=== PATIENT | female | born 2000 | race Caucasian/White ===

== ENCOUNTER 2023-07-09 14:48 | Outpatient (CLI) | payer OTHER, SELFPAY | END 2023-07-09 14:49 | disposition home or self-care (01) | LOC: AMB 07-16 16:06 | PROVIDERS: Visit Provider Emergency Medicine | DX: S79.911A Unspecified injury of right hip, initial encounter (principal); V80.010A Animal-rider injured by fall from or being thrown from horse in noncollision accident, initial encounter; Y93.52 Activity, horseback riding; Y92.39 Other specified sports and athletic area as the place of occurrence of the external cause | CPT/HCPCS: A0425; A0427 ==

== ENCOUNTER 2023-07-09 15:28 | Emergency (ER) | payer OTHER, SELFPAY ==
[2023-07-09] VITALS (18 sets, daily range): BP systolic 113–132; BP diastolic 66–89; PULSE 71–92; RESP 18; TEMP 36.8; O2SAT 94–100; BMI 24.2
--- NOTE | 2023-07-09 16:08 | ED_ITS ---
HPI - Fall General Time Seen by Provider: 16:08 Date Seen: 07/09/23 Chief Complaint: Fall/Minor Trauma Stated Complaint: Fell off horse Time Seen by Provider: 07/09/23 16:06 Source: patient and RN notes reviewed Mode of arrival: ambulatory Limitations: no limitations History of Present Illness HPI Narrative: This patient is a 22yo female accompanied by her mom into the ED after being bucked off her horse. She was riding dressage in the indoor arena when her horse spooked, taking off and bucking her off. She landed on her left side, initially had the wind knocked out of her, no loss of consciousness. She has no head pain, no headache, no facial pain, feels like her teeth are occluding normal. Initially with the wind being knocked out of her, felt short of breath but does not feel short of breath now. She feels a little lower left chest wall pain with breathing. No abdominal pain but feels pain over the left hip and the low back area. Pain originally did go down into her legs. No numbness tingling, no weakness noted. She did ambulate into the ED of her own accord, was ambulating independently after this but with some pain primarily on her left side. Her horse is about 17 2 hands. She denies any neck pain, no upper back pain. She was wearing a helmet, her head probably did make contact with the ground but it was not the 1st thing to hit. She is on oral contraceptives, has not missed any doses, does not believe there is chance of . I did have staff call TTA based on the mechanism reported. complaint: fall Loss of consciousness: No Related Data Home Medications Medication Instructions Recorded Confirmed hyoscyamine sulfate PO 07/09/23 omeprazole .ROUTE 07/09/23 Allergies Allergy/AdvReac Type Severity Reaction Status Date / Time No Known Drug Allergies Allergy Verified 07/09/23 15:44 Review of Systems Status of ROS: Reports: 6 or more systems reviewed and unremarkable except as noted in History and below [facility] Social History Smoking Status: Never smoker Do you use any of these nicotine containing products: None Second hand tobacco smoke exposure: No How often do you have a drink containing alcohol: 2-4 times a month AUDIT-C Alcohol total score: 2 Non-prescribed substance use: marijuana (any form) Exam Const: Vital Signs, click to edit/add: Vital Signs - 24 hr 07/09/23 15:36 07/09/23 16:11 07/09/23 16:12 Temperature 98.3 F Pulse Rate 76 80 Pulse Rate [Pulse Oximeter] 78 Respiratory Rate 18 Blood Pressure 117/79 Blood Pressure [Le ft Upper Arm] 124/86 Pulse Oximetry 98 99 99 Oxygen Delivery Me thod Room Air 07/09/23 16:15 07/09/23 16:20 07/09/23 16:41 Temperature Pulse Rate 71 91 Pulse Rate [Pulse Oximeter] Respiratory Rate Blood Pressure Blood Pressure [Le ft Upper Arm] Pulse Oximetry 100 99 94 Oxygen Delivery Me thod 07/09/23 16:45 Temperature Pulse Rate 86 Pulse Rate [Pulse Oximeter] Respiratory Rate Blood Pressure Blood Pressure [Le ft Upper Arm] Pulse Oximetry 100 Oxygen Delivery Me thod This 22-year-old female is alert, interactive, no apparent distress. She is shivering some. Her GCS is 15/15, initial survey shows her to be maintaining her airway, breathing independently, no concern for any circulatory issues or any open bleeding wounds. Secondary survey was moved on into immediately. Face is atraumatic, pupils equal and round, sclera clear, conjugate gaze. TMs canals are normal, no hemotympanum. No who traumatic change her face, oropharynx normal, opens jaw easily. No adenopathy, no midline tenderness of her neck, good range of motion of her neck without pain. No pain over clavicles, shoulders or into her arms. CV regular rate and rhythm, no murmur, normal S1- S2, no S3-S4. Lungs are clear, good air entry, no wheezing or crackles. Abdomen is soft, no rebound or guarding, no organomegaly, nontender. She is palpably tender over the left lower back, overlying the posterior iliac crest area and into the left low back. There is no midline tenderness over her spine. She can straight leg raise off the bed on the left side, does not really increase her pain significantly. She feels more pain when having her do a straight leg raise on the right side, feels that into her left low back area. She has a very superficial mildly erythematous abraded area over the left lower back and side of the pelvis. No pain into the left femur, knee, tib-fib or foot. Neurovascular grossly intact. Documenting provider has reviewed patient's vital signs: yes Course Course ED Course: Reviewed with patient and her mom options for imaging. We did discuss plain radiographs versus CT imaging. As it turns out, her mom actually is a physician. She is aware that there is increased radiation with the CT imaging but would like to proceed with CT imaging. Patient is currently hemodynamically stable, oxygenating well. She denies any need for pain management at this time. Will be proceeding with CT of her chest abdomen pelvis and reconstruction of her lumbar spine. Will get basic labs as well. They will certainly let us know if she is having any change in her status. Reevaluation(s) Time of Reevaluation #1: 17:33 Reevaluation #1: Reviewed with patient and her mom that the CT imaging is not showing any evidence of any acute fracture. There is no noted internal trauma. The CT does show superficial soft tissue contusion in the left posterior flank. She does feel some pain into the left leg, reassured that the CT showing no lumbar fracture. If she has ongoing issues, may need to consider MRI of her lumbar back with this does not need to happen emergently today. Reviewed labs, potassium 3.4, just slightly low. Hemoglobin is stable. Vital Signs Vital signs: Initial Vital Signs Temperature 98.3 F 07/09/23 15:36 Temperature Source Temporal Artery Scan 07/09/23 15:36 Pulse Rate 78 07/09/23 15:36 Respiratory Rate 18 07/09/23 15:36 Blood Pressure 124/86 07/09/23 15:36 Blood Pressure Mean 98 07/09/23 15:36 Blood Pressure Position Supine 07/09/23 15:36 Pulse Oximetry 98 07/09/23 15:36 Oxygen Delivery Method Room Air 07/09/23 15:36 Vital Signs Temperature 98.3 F 07/09/23 15:36 Pulse Rate 78 07/09/23 15:36 Respiratory Rate 18 07/09/23 15:36 Blood Pressure 124/86 07/09/23 15:36 Pulse Oximetry 98 07/09/23 15:36 Oxygen Delivery Method Room Air 07/09/23 15:36 Temperature 98.3 F 07/09/23 15:36 Pulse Rate 86 07/09/23 16:45 Respiratory Rate 18 07/09/23 15:36 Blood Pressure 117/79 07/09/23 16:11 Pulse Oximetry 100 07/09/23 16:45 Oxygen Delivery Method Room Air 07/09/23 15:36 - Fall Lab Data Attestation: I reviewed the patient's lab results. Labs: Lab Results 07/09/23 Range/Units 16:36 WBC 13.11 H (4.50-11.00) K/uL RBC 4.29 (4.00-5.20) m/uL Hgb 12.9 (12.0-16.0) gm/dL Hct 39.2 (33.0-51.0) % MCV 91 (80-100) fL MCH 30 (26-34) pg MCHC 33 (32-36) gm/dL RDW Coeff of Stephenie 12.7 (11.5-15.5) % Plt Count 268 (140-440) K/uL Neut % (Auto) 84.5 H (42.0-72.0) % Lymph % (Auto) 10.0 L (20-44) % [place] % (Auto) 4.7 (0.0-11.0) % Eos % (Auto) 0.4 (0.0-7.0) % Baso % (Auto) 0.2 (0.0-3.0) % Neut # (Auto) 11.10 H (1.7-7.0) K/uL Lymph # (Auto) 1.30 (0.90-2.90) K/uL [place] # (Auto) 0.60 (0.00-0.90) K/UL Eos # (Auto) 0.10 (0.00-0.50) K/uL Baso # (Auto) 0.00 (0.00-0.30) K/uL Abs Immat Gran (auto) 0.00 (0.00-0.30) K/uL Imm/Tot Granulo (auto) 0.2 % Sodium 139 (135-149) mmol/L Potassium 3.4 L (3.6-5.1) mmol/L Chloride 106 (96-114) mmol/L Carbon Dioxide 24 (20-32) mmol/L Anion Gap 9 (7-15) mEq/L BUN 13 (5-24) mg/dL Creatinine 0.7 (0.5-1.5) mg/dL Estimated Creat Clear 119.01 Estimated GFR 126 ml/min Glucose 118 H (60-115) mg/dL Calcium 9.4 (8.4-10.6) mg/dL Imaging Data CT Chest/Ab/Pelvis: Attestation: I have reviewed the pertinent imaging results. Radiologist's impression: Patient: YANIQUE ALONSO Facility:?[facility] Patient ID:?[id number] Site Patient ID:?[id number]. Site :?2001 Study:?CT-Chest/Abd/Pelvis 74CC ISOVIEW 370 TRAUMA CODE-07/09/2023 4:52:24 PM Ordering Physician:?DR CISSE Final Report: INDICATION: Fell off horse. Left-sided back and side pain. TECHNIQUE: CT chest, abdomen and pelvis acquired with 74 cc of Isovue 370 IV contrast. COMPARISON: None. FINDINGS: Chest: Cardiovascular structures: Heart size is normal. Thoracic aorta and pulmonary arteries as imaged are normal in appearance. Mediastinum and dulce: No evidence of mediastinal hemorrhage or pathologic lymphadenopathy. Lungs: No pneumothorax. Central airways are patent. Lungs are clear. Pleura and pericardium: No effusions. Chest wall and axilla: No mass or adenopathy. Abdomen and Pelvis: Liver: Unremarkable. Spleen: Unremarkable. Pancreas: Unremarkable. Gallbladder and bile ducts: Unremarkable. Kidneys: Unremarkable. Adrenal glands: Unremarkable. GI tract: No obstruction or focal inflammatory change. Normal appendix. No free intraperitoneal gas. Trace pelvic free fluid. Vascular structures: Unremarkable. Lymph nodes: Unremarkable. Pelvic Organs: Unremarkable. Bones: No acute osseous abnormality. There is heterogeneous subcutaneous contusion in the left posterior flank, for example as seen on axial image 199 of series 2. No well-defined superficial soft tissue hematoma. IMPRESSION: 1. No acute abnormality in the chest, abdomen or pelvis. 2. Superficial soft tissue contusion in the left posterior flank. Dictated by Cristobal Gutierres MD @ 07/09/2023 5:24:48 PM Please note that all CT scans at this facility use dose modulation, iterative reconstruction, and/or weight-based dosing when appropriate to reduce radiation dose to as low as reasonably achievable. Dictated by: Cristobal Gutierres MD @ 07/09/2023 17:25:03 (Electronic Signature) CT lumbar spine: Attestation: I have reviewed the pertinent imaging results. Radiologist's impression: Patient: YANIQUE ALONSO Facility:?[facility] Patient ID:?[id number] Site Patient ID:?[id number] Site :?2001 Study:?CT-Spine Lumbar TRAUMA CODE-07/09/2023 4:53:13 PM Ordering Physician:?DR CISSE Final Report: INDICATION: Lower back pain. Trauma. TECHNIQUE: CT images of the lumbar spine were reconstructed from the multiplanar CT examination of the chest abdomen and pelvis performed earlier same day. COMPARISON: None. FINDINGS: Normal lumbar lordosis. No acute fractures or traumatic subluxation. The vertebral body heights are maintained. The intervertebral disc spaces are preserved. The facet joints are unremarkable. Partially visualized left posterior flank superficial soft tissue contusion, better evaluated on the CT of the abdomen and pelvis. No significant prevertebral soft tissue edema. The visualized abdomen and pelvis appears within normal limits. The posterior paraspinal soft tissues appear unremarkable. IMPRESSION: No acute fracture or traumatic subluxation of the lumbar spine. Please note that all CT scans at this facility use dose modulation, iterative reconstruction, and/or weight-based dosing when appropriate to reduce radiation dose to as low as reasonably achievable. Dictated by Tucker Biggs MD @ 07/09/2023 5:30:43 PM (Electronic Signature) Critical Care Time Critical Care Time Critical Care Time: No Discharge Plan Discharge Clinical Impression: Trauma Contusion of left side of back Qualifiers: Encounter type: initial encounter Qualified Code(s): S20.222A - Contusion of left back wall of thorax, initial encounter Patient Disposition: Home, Self-Care Condition: Stable Instructions: Contusion in Adults (ED) Additional Instructions: Use ice to help decrease pain and swelling. Tylenol and ibuprofen alternating per bottle directions as needed for pain management. Increase activity as tolerated. Anticipate that you will develop some bruising along this left flank area. Follow-up with primary care provider within the next week if you have any ongoing concerns. Activity Level: Activity as Tolerated Prescriptions: No Action omeprazole .ROUTE hyoscyamine sulfate PO Follow Up/Referrals: Provider,Not a Local [Primary Care Provider] - Stand Alone Forms: [employer] Interactive Info Instructions
--- NOTE | 2023-07-09 16:20 | CT_ITS ---
Patient: YANIQUE ALONSO Facility:?[facility] Patient ID:?[id number] Site Patient ID:?[id number]. Site :?2000 Study:?CT-Spine Lumbar TRAUMA CODE-07/09/2023 4:53:13 PM Ordering Physician:?DR CISSE Final Report: INDICATION: Lower back pain. Trauma. TECHNIQUE: CT images of the lumbar spine were reconstructed from the multiplanar CT examination of the chest abdomen and pelvis performed earlier same day. COMPARISON: None. FINDINGS: Normal lumbar lordosis. No acute fractures or traumatic subluxation. The vertebral body heights are maintained. The intervertebral disc spaces are preserved. The facet joints are unremarkable. Partially visualized left posterior flank superficial soft tissue contusion, better evaluated on the CT of the abdomen and pelvis. No significant prevertebral soft tissue edema. The visualized abdomen and pelvis appears within normal limits. The posterior paraspinal soft tissues appear unremarkable. IMPRESSION: No acute fracture or traumatic subluxation of the lumbar spine. Please note that all CT scans at this facility use dose modulation, iterative reconstruction, and/or weight-based dosing when appropriate to reduce radiation dose to as low as reasonably achievable. Dictated by Tucker Biggs MD @ 07/09/2023 5:30:43 PM Signed by:?Tucker Biggs MD @07/09/2023 5:30:43 PM (Electronic Signature)
--- NOTE | 2023-07-09 16:20 | CT_ITS ---
Patient: YANIQUE ALONSO Facility:?[facility] Patient ID:?[id number] Site Patient ID:?[id number]. Site :?2001 Study:?CT-Chest/Abd/Pelvis 74CC ISOVIEW 370 TRAUMA CODE-07/09/2023 4:52:24 PM Ordering Physician:?DR CISSE Final Report: INDICATION: Fell off horse. Left-sided back and side pain. TECHNIQUE: CT chest, abdomen and pelvis acquired with 74 cc of Isovue 370 IV contrast. COMPARISON: None. FINDINGS: Chest: Cardiovascular structures: Heart size is normal. Thoracic aorta and pulmonary arteries as imaged are normal in appearance. Mediastinum and dulce: No evidence of mediastinal hemorrhage or pathologic lymphadenopathy. Lungs: No pneumothorax. Central airways are patent. Lungs are clear. Pleura and pericardium: No effusions. Chest wall and axilla: No mass or adenopathy. Abdomen and Pelvis: Liver: Unremarkable. Spleen: Unremarkable. Pancreas: Unremarkable. Gallbladder and bile ducts: Unremarkable. Kidneys: Unremarkable. Adrenal glands: Unremarkable. GI tract: No obstruction or focal inflammatory change. Normal appendix. No free intraperitoneal gas. Trace pelvic free fluid. Vascular structures: Unremarkable. Lymph nodes: Unremarkable. Pelvic Organs: Unremarkable. Bones: No acute osseous abnormality. There is heterogeneous subcutaneous contusion in the left posterior flank, for example as seen on axial image 199 of series 2. No well-defined superficial soft tissue hematoma. IMPRESSION: 1. No acute abnormality in the chest, abdomen or pelvis. 2. Superficial soft tissue contusion in the left posterior flank. Dictated by Cristobal Gutierres MD @ 07/09/2023 5:24:48 PM Please note that all CT scans at this facility use dose modulation, iterative reconstruction, and/or weight-based dosing when appropriate to reduce radiation dose to as low as reasonably achievable. Dictated by: Cristobal Gutierres MD @ 07/09/2023 17:25:03 Signed by:?Cristobal Gutierres MD @07/09/2023 5:25:03 PM (Electronic Signature)
[2023-07-09 17:10] LABS: Basophils Percent Auto 0.2 % (0.0-3.0); Chloride* 106 mmol/L (96-114); Eosinophils Percent Auto 0.4 % (0.0-7.0); Hematocrit 39.2 % (33.0-51.0); Hemoglobin* 12.9 gm/dL (12.0-16.0); Immature Granulocytes Pct Auto 0.2 %; Mean Corpuscular HGB Conc 33 gm/dL (32-36); Mean Corpuscular Hemoglobin 30 pg (26-34); Mean Corpuscular Volume 91 fL (80-100); Monocytes Percent Auto 4.7 % (0.0-11.0); Neutrophils Percent Auto 84.5 % (42.0-72.0); Platelet Count* 268 K/uL (140-440); Potassium* 3.4 mmol/L (3.6-5.1); RDW Coefficient of Variation % 12.7 % (11.5-15.5); Red Blood Count 4.29 m/uL (4.00-5.20); Sodium* 139 mmol/L (135-149); White Blood Count* 13.11 K/uL (4.50-11.00)
[2023-07-09 17:13] LABS: Anion Gap 9 mEq/L (7-15); Blood Urea Nitrogen* 13 mg/dL (5-24); Calcium* 9.4 mg/dL (8.4-10.6); Carbon Dioxide* 24 mmol/L (20-32); Creatinine* 0.7 mg/dL (0.5-1.5); Est. Creatinine Clearance* 119.01; Estimated Glomerular Filt Rate 126 ml/min; Glucose* 118 mg/dL (60-115)
[2023-07-09 17:14] LABS: Slide Review Reflex No
[2023-07-09] MEDS: ONDANSETRON ODT 4 MG TAB PO (18:09)
[2023-07-09] MEDS: OXYCODONE 5 MG TABLET PO (18:10)
[2023-07-09] MEDS: KETOROLAC 15 MG/ML inj IVP (18:15)
== END 2023-07-09 20:35 | disposition home or self-care (01) ==
PROVIDERS: Emergency Provider Family Medicine
DX: S20.222A Contusion of left back wall of thorax, initial encounter (principal); V80.010A Animal-rider injured by fall from or being thrown from horse in noncollision accident, initial encounter
CPT/HCPCS: 36415; 71260; 72131; 74177; 80048; 85025; 94761; 96374; 99284; 99291; A9270; G0390; J1885; Q9967